=== PATIENT | male | born 1995 | race Caucasian/White ===

== ENCOUNTER 2022-03-23 12:17 | Observation (INO) ==
[2022-03-23 13:23] LABS: White Blood Count 6.9 K/mcL (4.3-11.1)
[2022-03-23 13:24] LABS: Basophils # 0.1 K/mcL (0.0-0.2); Eosinophils # 0.4 K/mcL (0.0-0.6); Eosinophils % 6.4 %; Hematocrit 41.2 % (37.5-50.1); Hemoglobin 13.9 g/dL (12.9-16.9); Immature Granulocytes % 0.1 % (0-4); Lymphocytes # 2.5 K/mcL (0.6-4.6); Mean Corpuscular HGB Conc 33.7 g/dL (31.6-35.5); Mean Corpuscular Hemoglobin 29.8 pg (28.0-33.3); Mean Corpuscular Volume 88.4 fL (83.0-100.0); Mean Platelet Volume 9.4 fL (9.4-12.4); Monocytes # 0.9 K/mcL (0.0-1.3); Monocytes % 12.5 %; Neutrophils # 2.9 K/mcL (1.6-8.9); Platelet Count 263 K/mcL (140-400); Red Blood Count 4.66 M/mcL (4.19-5.50); Red Cell Distribution Width 12.6 % (11.5-14.5)
[2022-03-23 13:50] LABS: BUN/Creatinine Ratio 11 (6-26); Blood Urea Nitrogen 15 mg/dL (6-20); Calcium 9.6 mg/dL (8.6-10.3); Carbon Dioxide 29 mEq/L (23-29); Chloride 104 mEq/L (98-107); Glucose 105 mg/dL (70-105); Osmolality,Calculated 285 (280-300); Potassium 4.1 mEq/L (3.5-5.1); Sodium 137 mEq/L (136-145); Troponin I < 0.03 ng/mL (< 0.04)
[2022-03-23] MEDS ORDERED: Morphine Sulfate 2 MG/ML SYRINGE IVP ONE (16:31)
[2022-03-23 17:07] LABS: INR 1.2; Prothrombin Time 13.1 Seconds (9.4-12.1)
[2022-03-23 17:24] LABS: Troponin I < 0.03 ng/mL (< 0.04)
[2022-03-23] MEDS ORDERED: 0.9 % Sodium Chloride 1,000 ML IVC ONE (17:53)
[2022-03-23] MEDS ORDERED: Naloxone 0.4 MG/ML INJ IVP PRN (17:55)
[2022-03-23] MEDS ORDERED: Nitroglycerin 0.4 MG TAB.SUBL SL PRN (17:59)
[2022-03-23 19:14] LABS: Ethanol < 10 mg/dL (Less than 10)
[2022-03-23 19:23] LABS: Amphetamine Screen,Urine Negative ng/mL (Cutoff=1000); Barbiturate Screen,Urine Negative ng/mL (Cutoff=200); Benzodiazepines Screen,Urine Negative ng/mL (Cutoff=200); Cannabinoid Screen,Urine Negative ng/mL (Cutoff = 50); Cocaine Screen,Urine Negative ng/mL (Cutoff= 300); Opiate Screen,Urine Negative ng/mL (Cutoff=300); Phencyclidine Screen,Urine Negative ng/mL (Cutoff=25)
[2022-03-23 20:15] LABS: Adenovirus Not Detected (Not Detect); Bordetella Pertussis Not Detected (Not Detect); Chlamydophila pneumoniae Not Detected (Not Detect); Coronavirus 229E Not Detected (Not Detect); Coronavirus HKU1 Not Detected (Not Detect); Coronavirus NL63 Not Detected (Not Detect); Coronavirus OC43 Not Detected (Not Detect); Human Metapneumovirus Not Detected (Not Detect); Human Rhinovirus/Enterovirus Not Detected (Not Detect); Influenza A Subtype 2009 H1 Not Detected (Not Detect); Influenza B Not Detected (Not Detect); Mycoplasma pneumoniae Not Detected (Not Detect); Parainfluenza Virus 1 Not Detected (Not Detect); Parainfluenza Virus 2 Not Detected (Not Detect); Parainfluenza Virus 3 Not Detected (Not Detect); Parainfluenza Virus 4 Not Detected (Not Detect); Respiratory Syncytial Virus Not Detected (Not Detect); SARS-CoV-2 Not Detected (Not Detect)
[2022-03-24 02:22] LABS: Hematocrit 38.6 % (37.5-50.1); Hemoglobin 13.1 g/dL (12.9-16.9); Mean Corpuscular HGB Conc 33.9 g/dL (31.6-35.5); Mean Corpuscular Hemoglobin 29.6 pg (28.0-33.3); Mean Corpuscular Volume 87.1 fL (83.0-100.0); Mean Platelet Volume 9.5 fL (9.4-12.4); Platelet Count 238 K/mcL (140-400); Red Blood Count 4.43 M/mcL (4.19-5.50); Red Cell Distribution Width 12.6 % (11.5-14.5); White Blood Count 7.6 K/mcL (4.3-11.1)
[2022-03-24 02:44] LABS: BUN/Creatinine Ratio 11 (6-26); Blood Urea Nitrogen 14 mg/dL (6-20); Calcium 8.9 mg/dL (8.6-10.3); Carbon Dioxide 26 mEq/L (23-29); Chloride 107 mEq/L (98-107); Chol/HDL Ratio 2.4 (0-4.9); Cholesterol 169 mg/dL (< 200); Glucose 95 mg/dL (70-105); HDL Cholesterol 70 mg/dL (40-59); LDL Cholesterol,Calculated 80 mg/dL (< 100); Magnesium 2.1 mg/dL (1.6-2.6); Osmolality,Calculated 288 (280-300); Phosphorous 4.6 mg/dL (2.7-4.5); Potassium 3.9 mEq/L (3.5-5.1); Sodium 139 mEq/L (136-145); Triglycerides 95 mg/dL (< 150); Troponin I < 0.03 ng/mL (< 0.04)
[2022-03-24 06:58] VITALS: TEMP 97.4; O2SAT 98
[2022-03-24] MEDS ORDERED: *HR* Metoprolol 5 MG/5 ML VIAL IVP PRN (09:50)
[2022-03-24] MEDS ORDERED: Nitroglycerin 0.4 MG TAB.SUBL SL PRN (09:50)
[2022-03-24] MEDS ORDERED: Iopamidol - 370 500 ML MLS IVP ONE (09:50)
[2022-03-24 11:46] VITALS: PULSE 46
[2022-03-24 12:04] VITALS: BP 93/63
== END 2022-03-24 16:27 | disposition home or self-care (01) ==
LOC: 3BNU 12:17 → EMEROOARM 12:17 → 3BNU 20:30
PROVIDERS: ADMIT Internal Medicine; ATTEND Internal Medicine